=== PATIENT | female | born 1965 | race Caucasian/White ===

== ENCOUNTER 2018-12-28 15:14 | Outpatient (CLI) | payer OTHER | END 2018-12-28 23:59 | disposition home or self-care (01) | LOC: STAR 15:14 | PROVIDERS: ATTEND Obstetrics & Gynecology Gynecology | DX: Z01.818 Encounter for other preprocedural examination (principal); N81.10 Cystocele, unspecified; N39.3 Stress incontinence (female) (male); R94.31 Abnormal electrocardiogram [ECG] [EKG] | CPT/HCPCS: 36415; 71046; 80053; 81003; 84703; 85025; 85610; 85730; 93005 ==